=== PATIENT | male | born 1940 | race Caucasian/White ===

== ENCOUNTER 2021-12-23 15:50 | Emergency (ER) | payer OTHER ==
[~2021-12-23] VITALS: Ht 160 cm; Wt 90.7 kg
--- NOTE | 2021-12-23 16:09 | NUR ---
Dr Samuels spoke to Dr Zamora, chain splitter.
[2021-12-23] MEDS ORDERED: NITROGLYCERIN 0.4 MG/TAB BOTTLE SL ONE ×2 (16:15→17:15)
[2021-12-23] MEDS ORDERED: PANTOPRAZOLE SODIUM IV 40 MG in IV DEXTROSE 5% 100 ML IV ONE (16:30)
[2021-12-23] MEDS ORDERED: FERR325T28 PO (16:34)
[2021-12-23] MEDS ORDERED: IBUP-1955 PO (16:34)
[2021-12-23] MEDS ORDERED: COLC0.6C3 PO (16:34)
[2021-12-23] MEDS ORDERED: ATOR40TA PO (16:34)
[2021-12-23] MEDS ORDERED: APIX5TAB4 PO (16:34)
[2021-12-23] MEDS ORDERED: METO25TA6 PO (16:34)
[2021-12-23] MEDS ORDERED: AMMO385C4 TP (16:34)
[2021-12-23] MEDS ORDERED: LOSA25TA27 PO (16:34)
[2021-12-23] MEDS ORDERED: ALBU0.63 IH (16:34)
[2021-12-23] MEDS ORDERED: TIOT18CA3 INH (16:34)
[2021-12-23] MEDS ORDERED: SERT100T PO (16:34)
[2021-12-23] MEDS ORDERED: LEVO25TA9 PO (16:34)
[2021-12-23] MEDS ORDERED: ACET-73 PO (16:34)
[2021-12-23] MEDS ORDERED: DIGO125T PO (16:34)
[2021-12-23] MEDS ORDERED: SILO8CAP2 PO (16:34)
[2021-12-23] MEDS ORDERED: MIRABEGRON PO (16:34)
[2021-12-23 16:36] LABS: HEMATOCRIT 32.9 % (36.7-47.1); MEAN CORPUSCULAR HEMOGLOBIN 26.5 uug (23.8-33.4); MEAN CORPUSCULAR VOLUME 79.8 fL (73.0-96.2); PLATELET COUNT (AUTO) 253 K/uL (152-348)
[2021-12-23] MEDS ORDERED: IV NORMAL SALINE 250 ML IV ONE (16:39)
[2021-12-23] MEDS ORDERED: SWABABLE VALVE TRANSFER SET EA MC ONE (16:39)
[2021-12-23] MEDS ORDERED: IOHEXOL 350 100 ML INFUS..BTL ONE (16:39)
[2021-12-23 16:44] LABS: CARBON DIOXIDE 24 mmol/L (21-32); CHLORIDE 107 mmol/L (98-107); CREATININE 1.1 mg/dL (0.6-1.3); GLUCOSE 106 mg/dL (74-106); POTASSIUM 3.9 mmol/L (3.5-5.1); UREA NITROGEN, BLOOD 22 mg/dL (7-18)
--- NOTE | 2021-12-23 16:44 | NUR ---
DR GERMAIN TALKED TO [place] OPERATOR FOR [employer] FROM [facility] ABOUT PT's TRANSFER. [facility] DOES NOT HAVE BEDS AVAILABLE AT THIS TIME.
[2021-12-23 16:57] LABS: ALANINE AMINOTRANSFERASE 23 U/L (16-63); ALKALINE PHOSPHATASE 89 U/L (50-136); ASPARTATE AMINOTRANSFERASE 14 U/L (15-37); BILIRUBIN,DIRECT 0.1 mg/dL (0.0-0.2); BILIRUBIN,TOTAL 0.3 mg/dL (0.2-1.0); TOTAL PROTEIN, SERUM 6.6 g/dL (6.4-8.2)
[2021-12-23 17:12] LABS: *OCCULT BLOOD STOOL NEGATIVE (NEGATIVE)
[2021-12-23] MEDS ORDERED: PANTOPRAZOLE SODIUM 40 MG VIAL ONE (17:15)
--- NOTE | 2021-12-23 17:54 | NUR ---
DR GERMAIN TALKED TO TEODORO FROM [facility] ([phone]) , TO ARRANGE PT's TRANSFER. PT's MEDICAL RCORDS WERE FAXED ([phone]) TO [facility] ACCORDING TO THEIR REQUEST AND DR GERMAIN ORDER.
--- NOTE | 2021-12-23 19:31 | NUR ---
SPOKE TO TABITHA FORBES, GENERAL MANAGER [employer] FROM [facility] WHO STATES THEY ARE UNABLE TO ACCEPT PATIENT DUE TO NO TELE BEDS AVAILABLE AT THIS TIME.
--- NOTE | 2021-12-23 20:28 | NUR ---
IV removed. Catheter intact and site benign. Pressure and 4x4 gauze applied to site. No bleeding noted.
--- NOTE | 2021-12-23 20:33 | NUR ---
Patient does not wish to proceed with medical care recommended by Dr. NAVARRETE ). Patient given information related to possible complications, up to and including , which could occur as a result of leaving the hospital at this time. Patient verbalizes understanding of risks involved due to leaving against medical advice. Patient has signed AMA form.
[2021-12-23 20:38] VITALS: BP 138/78
== END 2021-12-23 20:30 | disposition left against medical advice (07) ==
LOC: ER 15:50
DX: R07.9 Chest pain, unspecified (principal); R55 Syncope and collapse; Z20.822 Contact with and (suspected) exposure to COVID-19; Z53.29 Procedure and treatment not carried out because of patient's decision for other reasons; I48.91 Unspecified atrial fibrillation; Z79.01 Long term (current) use of anticoagulants; E78.5 Hyperlipidemia, unspecified; E03.9 Hypothyroidism, unspecified; Z95.2 Presence of prosthetic heart valve; Z87.442 Personal history of urinary calculi; I11.0 Hypertensive heart disease with heart failure; I50.9 Heart failure, unspecified; Z79.890 Hormone replacement therapy; Z79.899 Other long term (current) drug therapy
CPT/HCPCS: 36415; 71045; 71275; 80048; 80076; 82270; 83880; 84484 ×2; 85025; 85379; 87426; 93005; 96374; 99291; C9113 ×2; Q9967; A4663